=== PATIENT | female | born 1975 | race Caucasian/White ===

== ENCOUNTER 2022-09-28 14:44 | Emergency (ER) | payer OTHER, SELFPAY ==
--- NOTE | ~2022-09-28 | XR_ITS ---
EXAMINATION: XR ANKLE, RIGHT CLINICAL INFORMATION: Rolled ankle, pain COMPARISON: None available. TECHNIQUE: AP, lateral, and mortise views of the right ankle. FINDINGS: There is soft tissue swelling along the lateral aspect of the ankle, not associated with fracture. Ankle mortise is maintained. XR/XR ankle RT min 3V IMPRESSION: No fracture seen. Soft tissue swelling.
[2022-09-28 16:16] VITALS: BP 144/90; PULSE 81; RESP 16; TEMP 37.1; O2SAT 97; BMI 37.8
--- NOTE | 2022-09-28 16:16 | ED_ITS ---
HPI - General Adult General Chief complaint: Extremity Injury, Lower Stated complaint: R Ankle Injury 09/28/22 Time Seen by Provider: 09/28/22 19:06 Source: patient Mode of arrival: ambulatory Limitations: no limitations History of Present Illness HPI narrative: This is a 47-year-old female presenting with right ankle pain, swelling, patient reports she rolled her ankle, this caused severe pain, patient fell ba ck, did not hit her head or lose consciousness. Immediately after she rolled her ankle she noted pain, swelling, pain worse with movement better at rest. Patient not on blood thinners. Patient denies any other injuries from fall. Patient denies chest pain, shortness of breath, nausea, vomiting, abdominal pain, headache, vision changes, dizziness, weakness. Related Data Previous Rx's Medication Instructions Recorded ketorolac 10 mg tablet 10 mg PO TID PRN pain 5 days #15 09/28/22 tabs Allergies Allergy/AdvReac Type Severity Reaction Status Date / Time No Known Allergies Allergy Verified 09/28/22 16:19 Review of Systems Review of Systems: Constitutional : No Weight loss, No Fever, No Chills, No Fatigue, No Malaise ENT/Mouth : No sore throat, No Rhinorrhea Eyes: No Eye Pain, No Swelling, No Redness Cardiovascular : No Chest Pain, No SOB, No Dyspnea on Exertion, No Orthopnea, No Edema, No Palpitations Respiratory : No Cough, No Sputum, No Wheezing Gastrointestinal : No Nausea, No Vomiting, No Diarrhea, No Constipation, No abdominal Pain, No Hematochezia, No Melena Genitourinary : No Dysuria, No Urinary Frequency, No Hematuria, Musculoskeletal : + joint pain, No Myalgias, + Joint Swelling Skin : No Skin Lesions, No rash Neuro : No Weakness, No Numbness, No Dizziness, No Headache Psych : No Anxiety/Panic, No Depression All other systems reviewed and are negative Yes all other systems are reviewed and are negative [facility] Past Medical History Attestation statement: The following information was validated with the patient. Source: old records reviewed and nursing notes reviewed Physical Exam ED Vital Signs: Vital Signs - 24 hr 09/28/22 16:16 Temperature 98.7 F Pulse Rate 81 Respiratory Rate 16 Blood Pressure 144/90 H Pulse Oximetry 97 Oxygen Delivery Method Room Air BMI result Body Mass Index 37.8 Vital signs stable Appearance: Alert.? Oriented X3.? No acute distress.? Head: Normocephalic, atraumatic, no step-offs or deformities Eyes: Pupils equal, round and reactive to light.? Neck: Normal inspection.? Neck supple.? CVS: Normal heart rate and rhythm.? Pulses normal.? Respiratory: No respiratory distress.? Breath sounds normal.? Abdomen: Soft and nontender.? Skin: Skin warm and dry.? Normal skin color.? Normal skin turgor.? Extremities: No lower extremity edema.? No calf ttp. 5/5 strength to bilateral upper and lower extremities + TTP to R. Lateral malleolus w/ overlying erythema. 2+ DP,AT,PT pulses equal and b/l. Normal cap refil < 2 seconds to bilateral lower extremity digits. No foot drop. normal sensation distally. + abrasion to left knee and l lateral ankle foll rom to both and normal sensation Back: No midline tenderness, no C-spine tenderness, full range of motion, no CVA tenderness bilaterally Neuro: Oriented X 3.? No motor deficit.? No sensory deficit. CN 2-12 intact . Normal [id number], [id number], steady tandem gait normal coordination. GCS 15. NIH stroke scale 0. Course Course Course Narrative: This is an RME: Additional HPI, ROS, PE not included below will be deferred to primary provider. 47 yo f presents w/ ankle pain s/p fall wheel lacer and truer tripped on sidewalk hit the ground no head strike or lOC. reports abrasions to R knee and pain and swelling ot left ankle. No other reported injuries Plan- imaging Reevaluation(s) Reevaluation #1: X-ray no acute fracture. Soft tissue swelling noted. Patient will get an Edmund wrap, crutches. Likely sprain. Educated on RICE, will have her follow-up with orthopedic team if needed. Educated patient on diagnosis and treatment plan, answered all question, patient verbalizes understanding. At this time patient will be discharged home, advised to return with new or worsening symptoms. Educated on worrisome signs and symptoms and when to return. At this time I feel comfortable discharge home. Time: 19:11 Medications Administered Discontinued Medications Generic Name Dose Route Start Last Admin Trade Name Freq PRN Reason Stop Dose Admin Ketorolac Tromethamine 30 mg 09/28/22 19:08 09/28/22 19:20 Ketorolac Tromethamine 15 Mg/Ml Vial IM 09/28/22 19:09 30 mg ONCE ONE Administration Medical Decision Making Medical Decision Making [facility] Narrative: 1906 47 year old female presents w/ right ankle pain & swelling s/p rolling her ankle [employer]ILL[employer] AD[employer]ISTR[employer] PE w/ TTP to R. Lateral malleolus w/ overlying erythema. 2+ DP,AT,PT pulses equal and b/l. Normal cap refil < 2 seconds to bilateral lower extremity digits. No foot drop. normal sensation distally. Concerns for sprain most likely other differential includes fracture, dislocation, contusion. Unlikely threat to Gil, neurovascular compromise. No signs of arterial or venous Occlusion. Plan x-ray, crutches. Will give Toradol for pain. Differential Diagnosis Differential Diagnoses: The differential diagnosis associated with the presentation includes Concerns for sprain most likely other differential includes fracture, dislocation, contusion. Unlikely threat to Gil, neurovascular compromise. No signs of arterial or venous Occlusion. Admission/Observation Consideration of admission/observation: Escalation of care including admission/observation considered unlikely Independent Interpretation I performed an independent interpretation of an: Plain X-Ray ( XR/XR ankle RT min 3V IMPRESSION: No fracture seen. Soft tissue swelling.) Prescription Management I considered prescription management with: Pain Medication Core Measures AMI core measures followed: Yes Measure exclusions: not indicated Critical Care Time Critical Care Time Critical Care Time: No Discharge Plan Discharge Clinical Impression: Ankle sprain and strain Patient Disposition: Home, Self-Care Instructions: Ankle Sprain (ED), R.I.C.E. Treatment (ED) Additional Instructions: Take your medications as prescribed. If you were prescribed antibiotics today, it is important that you take your medication to their entirety, do not skip any doses, do not finish them early. Follow-up with your primary care provider this week. Return to the emergency department with new or worsening symptoms. Such as fevers, chills, chest pain, shortness of breath, nausea, vomiting, dizziness, headache, vision changes, lethargy In case of emergency call 911 Toradol has been sent to your pharmacy, you tolerated this well in the department. Please take this as prescribed do not take this with ibuprofen, or other NSAIDs, do not mix this with alcohol. Side effects of this medication including increased risk for bleeding and possible kidney injury. XR/XR ankle RT min 3V IMPRESSION: No fracture seen. Soft tissue swelling. Prescriptions: New ketorolac 10 mg tablet 10 mg PO TID PRN (Reason: pain) 5 Days Qty: 15 0RF Referrals: [facility] [Provider Group] - 1 week Physician,Unknown J [Primary Care Provider] - 2 days Stand Alone Forms: Work/School Release
[2022-09-28] MEDS: Ketorolac Tromethamine 15 MG/ML VIAL 30 MG IM (19:20)
--- NOTE | 2022-09-28 19:33 | PC.NURSE ---
pt assessed and discharge by provider. Pt medicated, Pt verbalized understanding. No sign of distress.
== END 2022-09-28 19:37 | disposition home or self-care (01) ==
PROVIDERS: Emergency Provider Emergency Medicine
DX: S93.401A Sprain of unspecified ligament of right ankle, initial encounter (principal); S96.911A Strain of unspecified muscle and tendon at ankle and foot level, right foot, initial encounter; X50.1XXA Overexertion from prolonged static or awkward postures, initial encounter; Y93.9 Activity, unspecified; Y92.9 Unspecified place or not applicable; Y99.9 Unspecified external cause status
CPT/HCPCS: 73610; 96372; 99283; 99284; J1885